=== PATIENT | male | born 1980 | race Caucasian/White ===

== ENCOUNTER 2023-04-30 12:03 | Day surgery (SDC) | payer OTHER ==
[~2023-04-30] VITALS: Ht 167.6 cm; Wt 68.4 kg
[~2023-04-30 12:03] MED LIST: IBUP-1114 PO; NS 1,000 ML IV ONE; VITMTA PO
[2023-04-30] MEDS ORDERED: propofoL 200 MG/20 ML VIAL As Ordered ONE (12:52)
[2023-04-30 13:27] VITALS: TEMP 98
[2023-04-30 13:46] VITALS: BP 119/76; O2SAT 99
== END 2023-04-30 13:55 | disposition home or self-care (01) ==
LOC: M OPP 12:03
PROVIDERS: ATTEND Internal Medicine Gastroenterology
DX: Z12.11 Encounter for screening for malignant neoplasm of colon (principal); K64.0 First degree hemorrhoids; K63.3 Ulcer of intestine; Z79.899 Other long term (current) drug therapy

== ENCOUNTER 2025-02-27 12:19 | Emergency (ER) | payer OTHER ==
[~2025-02-27] VITALS: Ht 167.6 cm; Wt 69.9 kg
[~2025-02-27 12:19] MED LIST changes: -NS 1,000 ML IV ONE
[2025-02-27 15:05] VITALS: BP 131/71; TEMP 98.6; O2SAT 100
== END 2025-02-27 15:08 | disposition home or self-care (01) ==
LOC: M ED 12:19
DX: R68.84 Jaw pain (principal); M54.2 Cervicalgia; Z79.1 Long term (current) use of non-steroidal anti-inflammatories (NSAID); Z79.810 Long term (current) use of selective estrogen receptor modulators (SERMs)